=== PATIENT | male | born 1970 | race Caucasian/White ===

== ENCOUNTER 2016-11-23 14:21 | Outpatient (CLI) | payer OTHER ==
--- NOTE | 2016-11-23 16:41 | RAD ---
AP AND LATERAL AND FLEXION AND EXTENSION VIEWS LUMBAR SPINE: 11/23/16 Images demonstrate disc space height loss at L4-5 and L5-S1. There is anterior osteophyte at L5-S1. There is no evidence of melania or retrolisthesis on flexion or extension views. IMPRESSION: L4-5 and L5-S1 disc desiccation and disc space height loss. POS: [facility]
--- NOTE | 2016-11-23 16:56 | MRI ---
MRI LUMBAR SPINE WITHOUT CONTRAST: Date: 11/23/16 HISTORY: Lumbar radiculopathy. Localized low back pain for several months. COMPARISON: None. TECHNIQUE: MRI lumbar spine is performed without contrast. Reformatted images are submitted for interpretation. FINDINGS: Appropriate T1 marrow signal intensity of lumbar vertebra. Lumbar spine vertebral body height is blanche ntained. No fracture. No significant STIR hyperintensity to suggest vertebral body edema or ligament ous injury. Symmetric signal intensity of the psoas muscles. Appropriate signal intensity of the visualized lor d organs. Conus medullaris terminates at the superior aspect of L1. T12-L1: Adequate disc hydration. No significant central canal stenosis. Neural foramina are patent. L1-L2: Adequate disc hydration. No significant central canal stenosis. Neural foramina are patent. L2-L3: Adequate disc hydration. No significant central canal stenosis. Neural foramina are patent. Mild yajaira ateral facet hypertrophy. L3-L4: Adequate disc hydration. No significant central canal stenosis. There is ligamentum flavum thickenin g and facet hypertrophy. Bilaterally, neural foramina are patent. L4-L5: Disc desiccation. Generalized disc bulge with disc material encroaching upon both subarticular zones . Overall, there is mild central canal stenosis. There is near complete obscuration of traversing ri ght L5 nerve root and partial obscuration of traversing left L5 nerve root. Mild to moderate right a nd mild left foraminal narrowing. L5-S1: Disc desiccation with severe loss of disc space height. There is generalized disc bulge with a left paracentral protrusion. There is no significant central canal stenosis. Right subarticular zone is u nremarkable. There is narrowing of the left subarticular zone with disc material abutting but not ob scuring the traversing left S1 nerve root. Moderate to severe right and severe left foraminal stenos is. IMPRESSION: Degenerative disc disease at L4-L5 and L5-S1 as detailed above. POS: [facility]
--- NOTE | 2016-11-23 17:16 | MRI ---
MRI CERVICAL SPINE: 11/23/16 HISTORY: Neck pain, numbness, bilateral shoulders. Multiplanar and multisequence noncontrast enhanced MRI images cervical spine obtained. The spinal cord is unremarkable. No evidence of cord masses, or lesions seen. C1-2, C2-3: Unremarkable. C3-4: There is a mild broad based disc bulge. No significant central stenosis seen. The neural trang en are patent. C4-5: Unremarkable. C5-6: Disc desiccation is seen. There is a broad based disc osteophyte complex centrally resulting i n mild compression of the thecal sac. There is moderate to severe right and mild to moderate left si ded C5-6 neural foraminal narrowing due to uncovertebral osteophyte hypertrophy. C6-7: There is disc desiccation and disc space height loss. Broad based disc osteophyte complex cent rally is seen compressing the thecal sac resulting in moderate central spinal stenosis. There is sev ere right and moderate left C6-7 neural foraminal narrowing due to uncovertebral osteophyte hypertro phy. C7-T1: Unremarkable. IMPRESSION: Bilateral C5-6 and C6-7 neural foraminal narrowing. POS: [facility]
--- NOTE | 2016-11-26 09:22 | RAD ---
6 VIEWS CERVICAL SPINE: Date: 11/23/16 HISTORY: Radiculopathy, M54.12. FINDINGS: AP, lateral, open-mouth odontoid, swimmer's, and flexion/extension views of cervical spine obtained. Images demonstrate disc space height loss with anterior and posterior osteophytes at C5-6 and C6-7. This is compatible with changes of spondylosis. No evidence of melania or retrolisthesis seen. No arpit dence of fractures or other bony lesions seen. IMPRESSION: C5-6 and C6-7 changes of spondylosis. POS: [facility]
== END 2016-11-23 14:22 | disposition home or self-care (01) ==
LOC: TBSIIMAG 14:21
PROVIDERS: ATTEND Surgery
DX: M51.17 Intervertebral disc disorders with radiculopathy, lumbosacral region (principal); M54.12 Radiculopathy, cervical region
CPT/HCPCS: 72050; 72120; 72141; 72148